=== PATIENT | female | born 1960 | race Hispanic/Latino ===

== ENCOUNTER 2016-05-22 14:37 | Emergency (ER) | payer SELFPAY ==
[2016-05-22] MEDS ORDERED: Nitroglycerin 0.4 MG TAB (25 Tab Bottle) ONE (15:12)
[2016-05-22 15:15] LABS: #Basophils 0.1 thou/uL (0.0-0.2); #Eosinphils 0.4 thou/uL (0.0-0.7); #Lymphocytes 2.4 thou/uL (1.20-3.40); #Monocytes 0.5 thou/uL (0.11-0.59); #Neutrophils 4.9 thou/uL (1.40-6.50); %Eosinophils 4.3 % (0.0-10.0); %Monocytes 5.6 % (0.0-10.0); Hematocrit 40.6 % (36.0-47.0); Mean Platelet Volume 7.3 fL (7.4-10.4); Red Blood Cell (RBC) Count 4.61 mill/uL (4.20-5.40); White Blood Cell (WBC) Count 8.2 thou/uL (4.8-10.8)
[2016-05-22 15:32] LABS: ALT (SGPT) 44 U/L (0-55); AST (SGOT) 36 U/L (5-34); Alkaline Phosphatase 117 U/L (40-150); Anion Gap 15 mmol/L (10-20); BUN (Urea Nitrogen) 21 mg/dL (9.8-20.1); Bilirubin, Total 0.4 mg/dL (0.2-1.2); CK (CPK) 134 U/L (29-168); Calc. Creatinine Clearance 0 mL/min (70-130); Calcium 8.9 mg/dL (7.8-10.44); Carbon Dioxide 23 mmol/L (22-29); Chloride 107 mmol/L (98-107); Estimated GFR-MDRD 63; Lipase 26 U/L (8-78)
[2016-05-22 15:33] LABS: Troponin I Less than 0.010 ng/mL (< 0.028)
--- NOTE | 2016-05-22 18:42 | RAD ---
CHEST 2 VIEWS: Date: 05/22/16 Comparison made with the 08/10/14 study. FINDINGS: There is a little bit of right perihilar streaking and perhaps a little bit on the left. The finding is nonspecific, but can be seen in viral illnesses and asthma. No lobar consolidation seen. No effu sions present. The heart is normal in size and the vessels show no congestion. IMPRESSION: Mild perihilar streaking, mainly on the right, significance unknown. At the very least, I would abner t the patient and get a follow-up chest x-ray. If not resolved, she may ultimately need a CT scan to check the right hilar region. POS: HOME
[2016-05-22 18:48] LABS: Troponin I Less than 0.010 ng/mL (< 0.028)
--- NOTE | 2016-05-22 19:35 | PICIS ---
[facility] EMERGENCY RECORD TRIAGE (SunMay 22, 2016 14:44 JSMI) PATIENT: NAME: Cally Oliver, AGE: 55, GENDER: female, : Sun1960, TIME OF GREET: SunMay 22, 2016 14:38, PREFERRED LANGUAGE: Romanian, ETHNICITY: or , ECODE BILLING MAP: [facility], SSN: [id number], Zip Code: [address], KG WEIGHT: 90.72, PHONE: [phone], , , PERSON ID: [id number], PAYMENT: SJX Self Pay, PCP: none. (SunMay 22, 2016 14:44 JSMI) COMPLAINT: left arm pain, shortness of breath, CP. (SunMay 22, 2016 14:44 JSMI) ADMISSION: URGENCY: 2 Emergent, ADMISSION SOURCE: Home, TRANSPORT: CAR, BED: TRIAGE. (SunMay 22, 2016 14:44 JSMI) ASSESSMENT: Assessment: PT PRESENTS AWAKE ALERT AND ORIENTED. SKIN PINK WARM AND DRY., Symptoms began 05/22/2016 1700. (14:47 JSMI) PAIN: Patient complains of pain described as, aching, Location midsternal and left arm., Pain is constant, Aggravating factors:, Aggravating factors include coughing. (14:47 JSMI) IMMUNIZATIONS: Flu vaccine not up to date, Tetanus not up to date. (14:47 JSMI) SIRS SCORING: Heart Rate 55-109 (0), Temp range 96.8-101.1 (0), respiratory rate 12-24 (0), Mental Status altered: no (0), Infection or Suspected Infection: No. (14:47 JSMI) PROVIDERS: TRIAGE NURSE: Gabrielle Toney RN. (SunMay 22, 2016 14:44 JSMI) VITAL SIGNS: BP 142/81, Pulse 79, Resp 16, Temp 98.1, (Oral), Pain 5, O2 Sat 96, on Room Air, Time 05/22/2016 14:45. (14:45 JSMI) PREVIOUS VISIT ALLERGIES: Penicillins, Sulfa (Sulfonamide Antibiotics). (SunMay 22, 2016 14:44 JSMI) Penicillins, Sulfa (Sulfonamide Antibiotics). (14:47 JSMI) KNOWN ALLERGIES Penicillins Sulfa (Sulfonamide Antibiotics): - Entered category: Sulfa (Sulfonamide Antibiotics) -- Entered category: Sulfa (Sulfonamide Antibiotics) CURRENT MEDICATIONS (14:44 JSMI) None VITAL SIGNS VITAL SIGNS: BP: 142/81, Pulse: 79, Resp: 16, Temp: 98.1 (Oral), Pain: 5, O2 sat: 96 on Room Air, Time: 05/22/2016 14:45. (14:45 JSMI) BP: 110/69, Pulse: 73, Resp: 16, Pain: 5, Time: 05/22/2016 16:00. (16:00 KMOR) BP: 132/73, Pulse: 73, Resp: 14, Pain: 4, O2 sat: 99 on Room Air, Time: 05/22/2016 16:23. (16:23 JSMI) BP: 130/72, Pulse: 74, Resp: 20, Pain: 4, O2 sat: 95 on Room Air, Time: 05/22/2016 17:21. (17:21 JSMI) BP: 113/58, Pulse: 66, Resp: 18, Pain: 2, O2 sat: 97 on Room Air, Time: &a-1R&a+25V*p+0X*v4000D*c202B*c15G*c2P*p-0X&a-25V&a+1R Name: Cally Oliver : 1960 F55 MedRec: [id number] AcctNum: [id number] Prepared: Chadwick May 23, 2016 09:28 by Interface Page 1 of 11 pMD [facility] EM[facility]GENCY RECORD 05/22/2016 18:26. (18:26 JSMI) BP: 116/57, Pulse: 68, Resp: 19, Temp: 98.2 (Oral), Pain: 2, O2 sat: 97 on Room Air, Time: 05/22/2016 19:15. (19:15 KSPL) NURSING ASSESSMENT: RESPIRATORY /CHEST (14:47 JSMI) CONSTITUTIONAL: Complex assessment performed, Patient arrives ambulatory, Gait steady, History obtained from patient, Patient appears comfortable, Patient cooperative, Patient alert, Oriented to person, place and time, Skin warm, Skin dry, Skin normal in color, Mucous membranes pink, Mucous membranes moist, Patient is well-groomed, Patient complains of CP, cough, left arm pain. PAIN: midsternal. RESPIRATORY/CHEST: Breath sounds clear, Respiratory assessment findings include respiratory effort easy, Respirations regular, Conversing normally, Associated with cough, non-productive. NURSING PROCEDURE: DISCHARGE NOTE (19:15 KSPL) DISCHARGE: Patient discharged to home, ambulating without assistance, family driving, accompanied by other family member, Summary of Care printed/ provided, Patient requested and was provided an electronic copy of Discharge Instructions, Transition record given to patient, Discharge instructions given to patient, Simple or moderate discharge teaching performed, by Gina STONE, Follow up care, overview of prescribed meds, taking meds as prescribed., Prescriptions given and instructions on side effects given, Name of prescription(s) given: Motrin, zithromax, tessslon perles, mucinex, Medication reconciliation form given, Above person(s) verbalized understanding of discharge instructions and follow-up care, Patient treated and evaluated by physician. BELONGINGS: Belongings and valuables with patient at time of discharge include:, Belongings remain with patient, Valuables remain with patient. SAFETY: Side rails up, Cart/Stretcher in lowest position, Call light within reach, Hospital ID band on, Patient in view of the nursing station, Notes: Daughter called and is on way to pick up worker pt from ER. NURSING PROCEDURE: EKG CHART (14:44 KMOR) PATIENT IDENTIFIER: Patient actively involved in identification process, Patient's identity verified by patient stating name, Patient's identity verified by patient stating date. EKG: EKG indicated for complaint of chest pain, 12 lead EKG performed on the left chest, done by CHASE Miller, first EKG. FOLLOW-UP: After procedure, EKG for interpretation given to Dr. Tay. NOTES: Patient tolerated procedure well. NURSING PROCEDURE: IV (15:12 KMOR) PATIENT IDENITIFIER: Patient actively involved in identification &a-1R&a+25V*p+0X*q9997D*c202B*c15G*c2P*p-0X&a-25V&a+1R Name: Cally Oliver : 1960 F55 MedRec: [id number] AcctNum: [id number] Prepared: SunMay 23, 2016 09:28 by Interface Page 2 of 11 [facility] EMERGENCY RECORD process, Patient's identity verified by patient stating name, Patient's identity verified by patient stating date. IV SITE 1: IV therapy indicated for hydration, IV therapy indicated for medication administration, IV established, to the right antecubital, using an 18 gauge catheter, in one attempt, Saline lock established, Flushed with normal saline (mls): 10CC, Labs drawn at time of placement, labeled in the presence of the patient and sent to lab. FOLLOW-UP SITE 1: After procedure, 2x3 ensure dressing applied. NOTES: Patient tolerated procedure well. NURSING PROCEDURE: NURSE NOTES NURSES NOTES: Notes: Patient resting back in bed, RR even and unlabored. Reports feels short of breath, Patient head of bed elevated for comfort. (16:17 KMOR) Notes: Dr. Tay in to discuss place of care with patient, Patient denies needs at this time. (17:40 KMOR) Notes: BLOOD COLLECTED FOR REPEAT TROPONIN. REPEAT EKG DONE. (18:26 JSMI) Shift change report given, to CHASE Vallecillo, Provided opportunity to answer questions, Line reconciliation completed. (19:05 JSMI) NURSING PROCEDURE: TRANSPORT TO TESTS (15:16 JSMI) TRANSPORT TO TESTS: Patient transported to x-ray, via cart, Accompanied by x-ray bioprocessing manufacturing technician. ORDER DETAILS Order Name: POKER IN ED, Status: Done, Time: 15:11 05/22/2016, User: BON, - Ordered for: DO Tay Matthew, - Entered by: DO Tay Matthew - SunMay 22, 2016 15:01, - Quantity: 1, Order Name: Cardiac Profile w/CKMB & Troponin - I, Status: Active, Time: 15:01 05/22/2016, User: CINDY, - Ordered for: DO Tay Matthew, - Entered by: DO Tay Matthew - SunMay 22, 2016 15:01, - Quantity: 1, Order Name: CBC with Differential, Status: Active, Time: 15:01 05/22/2016, User: MBRI, - Ordered for: DO Tay Matthew, - Entered by: DO Jasvir Rohith - SunMay 22, 2016 15:01, - Quantity: 1, Order Name: CK (CPK), Status: Active, Time: 15:01 05/22/2016, User: MBRI, - Ordered for: DO Tay Matthew, - Entered by: DO Jasvir Rohith - SunMay 22, 2016 15:01, - Quantity: 1, Order Name: Comprehensive Metabolic Panel, Status: Active, Time: 15:01 05/22/2016, User: MBRI, &a-1R&a+25V*p+0X*d3009M*c202B*c15G*c2P*p-0X&a-25V&a+1R Name: Cally Oliver : 1960 F55 MedRec: [id number] AcctNum: [id number] Prepared: SunMay 23, 2016 09:28 by Interface Page 3 of 11 [facility] EMERGENCY RECORD - Ordered for: DO Tay Matthew, - Entered by: DO Tay Matthew - SunMay 22, 2016 15:01, - Quantity: 1, Order Name: EKG 12 Lead in Emergency Room, Status: Active, Time: 18:14 05/22/2016, User: MBRI, - Ordered for: DO Tay Matthew, - Entered by: DO Jasvir Rohith - SunMay 22, 2016 18:14, - Quantity: 1, Order Name: EKG 12 Lead in Emergency Room, Status: Active, Time: 15:01 05/22/2016, User: MBRI, - Ordered for: DO Tay Matthew, - Entered by: DO Jasvir Rohith - SunMay 22, 2016 15:01, - Quantity: 1, Order Name: ERRT Pulse Oximeter ER, Status: Active, Time: 15:01 05/22/2016, User: MBRI, - Ordered for: Jasvir, DO Rohith, - Entered by: DO Jasvir Rohith - SunMay 22, 2016 15:01, - Quantity: 1, Order Name: Lipase, Status: Active, Time: 15:01 05/22/2016, User: CINDY, - Ordered for: DO Tay Matthew, - Entered by: DO Tay Matthew - Arti May 22, 2016 15:01, - Quantity: 1, Order Name: SALINE LOCK, Status: Done, Time: 15:11 05/22/2016, User: KMOR, - Ordered for: DO Tay Matthew, - Entered by: DO Tay Matthew - Arti May 22, 2016 15:01, - Quantity: 1, Order Name: Troponin - I, Status: Active, Time: 18:14 05/22/2016, User: CINDY, - Ordered for: DO Tay Matthew, - Entered by: DO Tay Matthew - Arti May 22, 2016 18:14, - Quantity: 1, Order Name: Urinalysis w/ Rflx Microscopic, Status: Active, Time: 15:01 05/22/2016, User: CINDY, - Ordered for: DO Tay Matthew, - Entered by: DO Tay Matthew - Arti May 22, 2016 15:01, - Quantity: 1, Order Name: XR Chest Pa & Lat STANDARD, Status: Active, Time: 15:01 05/22/2016, User: CINDY, - Ordered for: DO Tay Matthew, - Entered by: DO Tay Matthew - Mon May 22, 2016 15:01, - Quantity: 1. MEDICATION ADMINISTRATION SUMMARY Drug Name: nitroglycerin sublingual, Dose Ordered: 0.4 mg, Route: Sublingual, Status: Given, Time: 15:14 05/22/2016, Drug Name: aspirin oral, Dose Ordered: 324 mg, Route: Oral, Status: Given, Time: 15:14 05/22/2016, Detailed record available in Medication Service section. &a-1R&a+25V*p+0X*j2853I*c202B*c15G*c2P*p-0X&a-25V&a+1R Name: Cally Oliver : 1960 F55 MedRec: [id number] AcctNum: [id number] Prepared: SunMay 23, 2016 09:28 by Interface Page 4 of 11 pMD [facility] EMERGENCY RECORD MEDICATION SERVICE (15:14 [facility]) aspirin oral: Order: aspirin oral (aspirin) - Dose: 324 mg : Oral Ordered by: Rohith Tay DO Entered by: Rohith Tay DO SunMay 22, 2016 15:09 , Acknowledged by: Gabrielle Toney RN SunMay 22, 2016 15:11 Documented as given by: Gabrielle Toney RN SunMay 22, 2016 15:14 Patient, Medication, Dose, Route and Time verified prior to administration. Correct patient, time, route, dose and medication confirmed prior to administration, Patient advised of actions and side-effects prior to administration, Allergies confirmed and medications reviewed prior to administration, Patient in position of comfort, Side rails up, Cart in lowest position. nitroglycerin sublingual: Order: nitroglycerin sublingual (nitroglycerin) - Dose: 0.4 mg : Sublingual Ordered by: Rohith Tay DO Entered by: Rohith Tay DO SunMay 22, 2016 15:09 , Acknowledged by: Gabrielle Toney RN SunMay 22, 2016 15:11 Documented as given by: Gabrielle Toney RN SunMay 22, 2016 15:14 Patient, Medication, Dose, Route and Time verified prior to administration. Correct patient, time, route, dose and medication confirmed prior to administration, Patient advised of actions and side-effects prior to administration, Allergies confirmed and medications reviewed prior to administration, Patient in position of comfort, Side rails up, Cart in lowest position, CP 3/10 BP 132/73. HPI CHEST PAIN (SunMay 23, 2016 09:09 MBRI) CHIEF COMPLAINT: Patient presents for evaluation of chest pain, ongoing. HISTORIAN: History provided by patient. LOCATION: Symptoms are localized, Entire chest, No radiation of pain, Pain has not moved in location over time. QUALITY: Pain is dull in nature, described as aching. SEVERITY: Maximum severity of symptoms moderate, Currently symptoms are moderate. TIME COURSE: Gradual onset of symptoms, started yesterday and has been constant since that time., There has been no change in the patient's symptoms over time, are constant. ASSOCIATED WITH: Associated with chills, Associated with cough, No associated fever, No associated nausea, No associated palpitations, Associated with shortness of breath, No associated trauma, Associated with upper respiratory infection, No associated vomiting, cough started several days ago. &a-1R&a+25V*p+0X*i0280H*c202B*c15G*c2P*p-0X&a-25V&a+1R Name: Cally Oliver : 1960 F55 MedRec: [id number] AcctNum: [id number] Prepared: SunMay 23, 2016 09:28 by Interface Page 5 of 11 pMD [facility] EMERGENCY RECORD EXACERBATED BY: Patient's condition exacerbated by cough, Patient's condition exacerbated by palpation of chest. RELIEVED BY: Patient's condition relieved by nothing. RISK FACTORS: Coronary artery disease risk factors, include family history, include smoking, No thoracic aortic dissection risk factors, No pulmonary embolism risk factors. WELLS CRITERIA FOR PE: No clinical signs and symptoms of a DVT (0), Patient does not have, or is likely to not have, a primary diagnosis of PE (0), Patient's heart rate is less than 100 (0), Patient has no history of immobilization within 3 days, nor any surgical history within the past 4 weeks (0), Patient has not had an objectively diagnosed PE or DVT previously (0), Patient does not have hemoptysis (0), Patient has not had treatment for malignancy within the last 6 months, nor palliative (0). ROS (SunMay 23, 2016 09:07 MBRI) CONSTITUTIONAL: Historian reports chills, reports malaise. EYES: Historian denies eye pain, denies photophobia, denies vision changes. ENT: Historian denies dysphagia, denies dysphasia, denies dysphonia, denies rhinorrhea, Historian denies sore throat. CARDIOVASCULAR: Historian reports chest pain, radiation to, the back, Historian denies diaphoresis, denies dyspnea on exertion, denies edema, denies orthopnea, denies syncope, denies palpitations. RESPIRATORY: Historian reports cough, reports shortness of breath, reports sputum, denies stridor, denies wheezing. GI: Negative gastrointestinal review of systems, Historian denies abdominal pain, denies diarrhea, denies nausea, denies vomiting. GENITOURINARY FEMALE: Historian denies dysuria, denies frequency, denies hematuria, denies urinary retention. MUSCULOSKELETAL: Historian denies injury, Denies any musculoskeletal pain. SKIN: Negative skin review of systems, Historian denies skin changes. NEUROLOGIC: Negative neurologic review of systems, Historian denies focal weakness, denies sensory changes. HEMO/LYMPHATIC: Historian denies abnormal blood clotting, denies easy bruising. PAST MEDICAL HISTORY (14:47 JSMI) MEDICAL HISTORY: Past medical history includes pulmonary disease, asthma, Past medical history includes pulmonary disease, asthma. mild cva. FEMALE SURGICAL HISTORY: Surgical history of hysterectomy, Surgical history of tubal ligation. &a-1R&a+25V*p+0X*x2602W*c202B*c15G*c2P*p-0X&a-25V&a+1R Name: Cally Oliver : 1960 F55 MedRec: [id number] AcctNum: [id number] Prepared: SunMay 23, 2016 09:28 by Interface Page 6 of 11 pMD [facility] EMERGENCY RECORD PSYCHIATRIC HISTORY: No previous psychiatric history. SOCIAL HISTORY: Patient drinks socially, Patient denies drug use, Patient currently uses tobacco, smokes cigarettes, daily, Patient has smoked for 30 years, Patient smokes 1/2 packs per day. FAMILY HISTORY: Family history is non-contributory to this case. Family history is non-contributory to this case. PHYSICAL EXAM (SunMay 23, 2016 09:07 MBRI) CONSTITUTIONAL: Vital Signs Reviewed, Nursing notes reviewed. HEAD: Head exam included findings of head atraumatic, normocephalic. EYES: Eye exam included findings of eyelids normal to inspection, Pupils equally round and reactive to light, Extraocular muscles intact. ENT: Ear exam normal, tympanic membranes normal, Nose exam normal, Pharynx exam normal, not injected. NECK: Neck exam normal, Neck exam included findings of normal range of motion, Trachea midline. RESPIRATORY CHEST: Respiratory exam included findings of no respiratory distress, Breath sounds clear, No wheezing, No rales, No rhonchi. CARDIOVASCULAR: Cardiovascular exam included findings of heart rate regular rate and rhythm, Heart sounds normal, normal S1, normal S2, no murmurs, Carotids normal, Abdominal aorta normal, Femoral pulses normal. ABDOMEN FEMALE: Abdominal exam included findings of abdomen nontender, Bowel sounds normal, no distension, no mass, no pulsatile masses, no peritoneal signs, no rigidity, no guarding, no rebound. BACK: Back exam included findings of normal inspection, no tenderness. UPPER EXTREMITY: Upper extremity exam included findings of inspection normal, Range of motion normal, Motor strength normal, Radial pulse normal, no cyanosis, no clubbing, no edema. LOWER EXTREMITY: Lower extremity exam included findings of inspection normal, Range of motion normal, Motor strength normal, Pedal pulse normal, no cyanosis, no clubbing, no edema, Normal pop pulses wanda noted. NEURO: Neuro exam findings include patient oriented to person, place and time, Speech normal, Gait normal. SKIN: Skin exam included findings of skin warm, dry, and normal in color. PSYCHIATRIC: Psychiatric exam included findings of patient oriented to person place and time, Normal affect. LAB INTERPRETATION (18:23 MBRI) INTERPRETATION: I reviewed the lab results. EVENTS TRANSFER: Triage to Emergency Triage. (SunMay 22, 2016 14:44 &a-1R&a+25V*p+0X*m1123E*c202B*c15G*c2P*p-0X&a-25V&a+1R Name: Cally Oliver : 1960 F55 MedRec: [id number] AcctNum: [id number] Prepared: SunMay 23, 2016 09:28 by Interface Page 7 of 11 pMD [facility] EMERGENCY RECORD [facility]) Emergency Triage to Emergency Room -04. (15:05 KMOR) Removed from Emergency Emergency Room -04. (19:19 KSPL) RADIOLOGYINTERPRETATION (18:23 MBRI) CHEST: Chest films negative, no pneumothorax, no hemothorax, no cardiomegaly, no congestive heart failure, no effusion, wanda perihilar infiltrates suspected. VEST BASTER: Preliminary review of x-rays by, ED Physician. EKG INTERPRETATION 12 LEAD EKG INTERPRETATION: 12 lead EKG interpreted by Emergency Department Physician at time of study, 12 lead EKG shows normal sinus rhythm, Rate (beats per minute): 84, with no ectopics, Conduction normal, ST segments normal, T waves normal, Crozier normal. (15:35 MBRI) 12 lead EKG interpreted by Emergency Department Physician at time of study, 12 lead EKG shows normal sinus rhythm, Rate (beats per minute): 67, with no ectopics, Interpretation: normal EKG, Conduction normal, ST segments normal, T waves normal, Crozier normal, #2 No changes noted. (18:24 MBRI) O2SAT INTERPRETATION (15:01 MBRI) O2SAT: Oxygen saturation interpretation: Normal. DOCTOR NOTES (SunMay 23, 2016 09:08 MBRI) TEXT: Pt evaluated at this time and appears stable. No findings to suggest sig illness or issue requiring hospitalization or further intervention at this time. No indications for acute cardiopulmonary etiology ie TAD, TAA, ACS, AMI, PE, PTX, pneumonia, or upper GI etiology. Plan of care discussed with pt and questions answered. Pt was informed of reasons for follow-up and return and they stated understanding. Pt is stable for d/c home at this time. HEART SCORE: Patients history is Slightly Suspicious (0), Patients ECG is normal (0), Patients age is greater than 45 and less than 65 (1), Patient has 1 or 2 risk factors (1), Patients Troponin is equal to or less than 1 times the normal limit (0), Total 2. PROBLEM LIST No recorded problems DIAGNOSIS (19:03 MBRI) FINAL: PRIMARY: ACUTE BRONCHITIS UNSPECIFIED, ADDITIONAL: chest pain - non-cardiac. DISPOSITION PATIENT: Disposition Type: Discharge, Disposition: *Discharge Home, Condition: Fair. (19:03 MBRI) Patient left the department. (19:19 KSPL) &a-1R&a+25V*p+0X*m2218I*c202B*c15G*c2P*p-0X&a-25V&a+1R Name: Cally Oliver : 1960 F55 MedRec: [id number] AcctNum: [id number] Prepared: SunMay 23, 2016 09:28 by Interface Page 8 of 11 pMD [facility] EMERGENCY RECORD INSTRUCTION (19:04 MBRI) DISCHARGE: BRONCHITIS, ABX TX (ADULT), ATYPICAL CHEST PAIN UNKNOWN CAUSE. FOLLOWUP: [facility], /[facility], [address] [place] [address], [facility] [id number], , Follow up with Primary Care Physician in 7-10 days. SPECIAL: Please return for any further issues or concerns, we would be happy to see you. We hope you feel better soon. Follow-up with your PCP in a week for further assessment and care. Tylenol or Advil for Pain. PRESCRIPTION (19:03 MBRI) Motrin: TABLET : 600 mg : ORAL : Quantity: 1 Unit: tab(s) Route: ORAL Schedule: every 6 hours PRN Dispense: 60 May substitute. Refills: No Refills . NOTES: No refills. Mucinex DM: TABLET,EXTENDED RELEASE MULTIPHASE 12 HR : 1,200 mg-60 mg : ORAL : Quantity: 1 Unit: tab(s) Route: ORAL Schedule: every 12 hours Dispense: 20 May substitute. Refills: No Refills . NOTES: ^s=No refills No refills. Tessalon Perles: CAPSULE (HARD, SOFT, ETC.) : 100 mg : ORAL : Quantity: 1 Unit: cap(s) Route: ORAL Schedule: every 8 hours PRN Dispense: 21 May substitute. Refills: No Refills . NOTES: ^s=^s=No refills No refills No refills. Zithromax oral: TABLET : 250 mg : ORAL : Quantity: 1 Unit: tab(s) Route: ORAL Schedule: once a day Dispense: 6 May substitute. Refills: No Refills . NOTES: 2 tabs po on day 1 then 1 tab po daily for 4 days No refills. IMAGING *EKG: Image captured from scanner. (18:12 KMOR) *DISCHARGE INSTRUCTIONS RECEIPT: Image captured from scanner. (19:58 KSPL) Page 2 added. Image captured from scanner. (19:58 KSPL) *SUPPLY CHARGE SHEET: Image captured from scanner. (19:58 KSPL) *EKG 2: Image captured from scanner. (SunMay 23, 2016 08:06 KMOR) ADMIN DIGITAL SIGNATURE: CHASE Yeboah, Angela. (SunMay 23, 2016 07:17 KMOR) DO Tay Matthew. (SunMay 23, 2016 09:21 MBRI) &a-1R&a+25V*p+0X*g9710O*c202B*c15G*c2P*p-0X&a-25V&a+1R Name: Cally Oliver : 1960 F55 MedRec: [id number] AcctNum: [id number] Prepared: SunMay 23, 2016 09:28 by Interface Page 9 of 11 pMD [facility] EMERGENCY RECORD RESULTS LABORATORY: Cardiac Profile w/CKMB & TropI Collection DT: SunMay 22, 2016 15:12, CKMB 1.8 ng/mL, Range (0-6.6), Troponin I Less than 0.010 ng/mL, Range (< 0.028), Reference Range , 0.00 - 0.028 ng/mL Negative 0.029 - 0.29 ng/mL , Indeterminate Greater or Equal to 0.3 ng/mL Strongly suggests TX , . (15:36 MBRI) Lipase Collection DT: SunMay 22, 2016 15:12, Lipase 26 U/L, Range (8-78). (15:36 MBRI) CK (CPK) Collection DT: SunMay 22, 2016 15:12, CK (CPK) 134 U/L, Range (29-168). (15:36 MBRI) Comprehensive Metabolic Panel Collection DT: SunMay 22, 2016 15:12, Sodium 141 mmol/L, Range (136-145), Potassium 3.7 mmol/L, Range (3.5-5.1), Chloride 107 mmol/L, Range (98-107), Carbon Dioxide 23 mmol/L, Range (22-29), Anion Gap 15 mmol/L, Range (10-20), *BUN (Urea Nitrogen) 21 - H mg/dL, Range (9.8-20.1), Creatinine 0.93 mg/dL, Range (0.6-1.1), Estimated GFR-MDRD 63 , Reference Range for Estimated GFR: Greater than 90, mL/min/1.73 m2 NOTE: The MDRD equation has not been validated for use, with the elderly (over 70 years of age), women, patients with, serious comorbid condition or persons with extremes of body size, muscle, mass, or nutritional status. , Glucose 100 mg/dL, Range (70-105), Calcium 8.9 mg/dL, Range (7.8-10.44), Bilirubin, Total 0.4 mg/dL, Range (0.2-1.2), Protein, Total 7.0 g/dL, Range (6.0-8.3), NOTE: Plasma values are generally 0.3 to 0.5 g/dL higher than serum values, due to the presence of fibrinogen. , Albumin 4.0 g/dL, Range (3.5-5.0), Globulin 3.0 g/dL, Range (2.4-3.5), Alb/Glob Ratio 1.3 g/dL, Range (1.2-2.2), Alkaline Phosphatase 117 U/L, Range (40-150), *AST (SGOT) 36 - H U/L, Range (5-34), ALT (SGPT) 44 U/L, Range (0-55). (15:36 MBRI) CBC with Differential Collection DT: SunMay 22, 2016 15:12, White Blood Cell (WBC) Count 8.2 thou/uL, Range (4.8-10.8), Red Blood Cell (RBC) Count 4.61 mill/uL, Range (4.20-5.40), Hemoglobin 12.9 g/dL, Range (12.0-16.0), Hematocrit 40.6 %, Range (36.0-47.0), Mean Corpuscular Volume 88.1 fl, Range (81.0-99.0), &a-1R&a+25V*p+0X*a7915X*c202B*c15G*c2P*p-0X&a-25V&a+1R Name: Cally Oliver : 1960 F55 MedRec: [id number] AcctNum: [id number] Prepared: SunMay 23, 2016 09:28 by Interface Page 10 of 11 pMD [facility] EMERGENCY RECORD Mean Corpuscular Hemoglobin 28.0 pg, Range (27.0-31.0), *Mean Corpuscular HGB CONC 31.8 - L g/dL, Range (32.0-36.0), RBC Distribution Width 12.2 %, Range (11.5-14.5), Platelet Count 249 thou/uL, Range (130-400), *Mean Platelet Volume 7.3 - L fL, Range (7.4-10.4), %Neutrophils 59.5 %, Range (42.0-75.0), %Lymphocytes 29.5 %, Range (21.0-51.0), %Monocytes 5.6 %, Range (0.0-10.0), %Eosinophils 4.3 %, Range (0.0-10.0), %Basophils 1.0 %, Range (0.0-1.0), #Neutrophils 4.9 thou/uL, Range (1.40-6.50), #Lymphocytes 2.4 thou/uL, Range (1.20-3.40), #Monocytes 0.5 thou/uL, Range (0.11-0.59), #Eosinphils 0.4 thou/uL, Range (0.0-0.7), #Basophils 0.1 thou/uL, Range (0.0-0.2). (15:36 [facility]RI) Troponin - I Collection DT: SunMay 22, 2016 18:39, Troponin I Less than 0.010 ng/mL, Range (< 0.028), Reference Range , 0.00 - 0.028 ng/mL Negative 0.029 - 0.29 ng/mL , Indeterminate Greater or Equal to 0.3 ng/mL Strongly suggests [place] , . (19:01 [facility]RI) Murillo: JOAN=CHASE Toney, Gabrielle MCCONNELLOR=CHASE Yeboah, Angela KSPL=CHASE Rodriguez, Gina MBRI=DO Tay Matthew &tessa-1R&a+25V*p+0X*[id number]*c202B*c15G*c2P*p-0X&a-25V&a+1R Name: Cally Oliver : 1960 F55 MedRec: [id number] AcctNum: [id number] Prepared: SunMay 23, 2016 09:28 by Interface Page 11 of 11 pMD [facility] MEDICATION RECONCILIATION You were seen in the Emergency Department on: SunMay 22, 2016 KNOWN ALLERGIES Penicillins Sulfa (Sulfonamide Antibiotics): - Entered category: Sulfa (Sulfonamide Antibiotics) -- Entered category: Sulfa (Sulfonamide Antibiotics) MEDICATIONS GIVEN WHILE IN THE EMERGENCY DEPARTMENT nitroglycerin sublingual (nitroglycerin) - Dose: 0.4 milligram(s) : Sublingual aspirin oral (aspirin) - Dose: 324 milligram(s) : Oral HOME MEDICATIONS None Notes from the emergency department Reviewed with patient PRESCRIPTIONS (4) Printed (4) Motrin : TABLET : 600 mg : ORAL Quantity: 1, Unit: tab(s), Route: ORAL, Schedule: every 6 hours PRN, Dispense: 60 Mucinex DM : TABLET,EXTENDED RELEASE MULTIPHASE 12 HR : 1,200 mg-60 mg : ORAL Quantity: 1, Unit: tab(s), Route: ORAL, Schedule: every 12 hours, Dispense: 20 Tessalon Perles : CAPSULE (HARD, SOFT, ETC.) : 100 mg : ORAL Quantity: 1, Unit: cap(s), Route: ORAL, Schedule: every 8 hours PRN, Dispense: 21 &a-1R&a+25V*p+0X*[id number]*c202B*c15G*c2P*p-0X&a-25V&a+1R Name: Cally Oliver : 1960 F55 MedRec: [id number] AcctNum: [id number] Prepared: SunMay 23, 2016 09:28 by Interface pMD [facility]ENTER[facility]ama[facility]
== END 2016-05-22 19:15 | disposition home or self-care (01) ==
LOC: BURERS 14:37
DX: J20.9 Acute bronchitis, unspecified (principal); J45.909 Unspecified asthma, uncomplicated; F17.210 Nicotine dependence, cigarettes, uncomplicated; Z98.51 Tubal ligation status; Z86.73 Personal history of transient ischemic attack (TIA), and cerebral infarction without residual deficits
CPT/HCPCS: 71020; 80053; 82550; 82553; 83690; 84484; 85025; 93005; 94760

== ENCOUNTER 2016-06-02 10:59 | Emergency (ER) | payer OTHER, SELFPAY ==
[2016-06-02] MEDS ORDERED: Ondansetron HCl/PF 4 MG/2 ML Vial ONE (11:16)
[2016-06-02] MEDS ORDERED: Ketorolac Tromethamine 30 MG/ML VIAL ONE (11:16)
[2016-06-02 11:38] LABS: Lactic Acid - Sepsis 1.4 mmol/L (0.5-2.2)
[2016-06-02 11:43] LABS: ALT (SGPT) 563 U/L (0-55); AST (SGOT) 377 U/L (5-34); Alkaline Phosphatase 531 U/L (40-150); Anion Gap 15 mmol/L (10-20); BUN (Urea Nitrogen) 13 mg/dL (9.8-20.1); Bilirubin, Total 5.7 mg/dL (0.2-1.2); Calc. Creatinine Clearance 0 mL/min (70-130); Calcium 9.8 mg/dL (7.8-10.44); Carbon Dioxide 24 mmol/L (22-29); Chloride 102 mmol/L (98-107); Estimated GFR-MDRD 69; Globulin 3.7 g/dL (2.4-3.5)
[2016-06-02 11:50] LABS: #Lymphocytes 0.4 thou/uL (1.20-3.40); #Monocytes 0.2 thou/uL (0.11-0.59); #Neutrophils 10.2 thou/uL (1.40-6.50); %Basophils 0.4 % (0.0-1.0); %Eosinophils 0.2 % (0.0-10.0); %Monocytes 1.7 % (0.0-10.0); Mean Platelet Volume 8.1 fL (7.4-10.4); Red Blood Cell (RBC) Count 5.05 mill/uL (4.20-5.40); White Blood Cell (WBC) Count 10.9 thou/uL (4.8-10.8)
[2016-06-02 11:59] LABS: Troponin I Less than 0.010 ng/mL (< 0.028)
[2016-06-02] MEDS ORDERED: Fentanyl 100 MCG/2 ML VIAL ONE (12:02)
[2016-06-02] MEDS ORDERED: metroNIDAZOLE 500 MG/100 ML BAG ONE (12:02)
--- NOTE | 2016-06-02 20:12 | RAD ---
PORTABLE CHEST 06/02/16 An AP portable film at 1114 shows a normal sized heart and clear lungs. There is no sign of pneumoni a or pleural effusion. Comparison with the prior study of 05/22 shows no adverse change in the interva l. IMPRESSION: No acute thoracic finding. POS: HOME
--- NOTE | 2016-06-02 21:09 | ULT ---
RIGHT UPPER QUADRANT ULTRASOUND 06/02/16 Ultrasonography of the right upper quadrant was performed for evaluation of pain. Documentary images and worksheets were provided and reviewed. The patient's abdomen is rather gassy which obscures some areas. The gallbladder is contracted and a ppears to have some gallstones within it. The wall is slightly thick and there may be even a little bit of fluid around the gallbladder. Additionally, the common bile duct is dilated measuring about 1 .2 cm in diameter. Some of the images suggest gallstones are present in the common bile duct. The liver is enlarged measuring just over 23 cm in oblique sagittal dimension. While it is not seen optimally, no masses were appreciated. Any dilation of intrahepatic duct is relatively minor. The pancreas was largely obscured by gas. The visible sections appear normal. The right kidney appea red normal and measured 11.7 cm in length. IMPRESSION: 1. Findings suggestive of acute cholecystitis with stones in the common bile duct causing obstr uction. 2. Hepatomegaly. Findings discussed with Dr. Lake at 1259 on 06/02/16. POS: HOME
== END 2016-06-02 13:14 | disposition home or self-care (01) ==
LOC: BURERS 10:59
DX: K80.63 Calculus of gallbladder and bile duct with acute cholecystitis with obstruction (principal); J45.909 Unspecified asthma, uncomplicated; Z86.73 Personal history of transient ischemic attack (TIA), and cerebral infarction without residual deficits; F17.210 Nicotine dependence, cigarettes, uncomplicated
CPT/HCPCS: 36415; 71010; 76705; 80053; 82553; 83605; 84484; 85025; 87040; 93005; 94760; 96361; 96365; 96375; J1170; J1885; J1956; J2405; J3010

== ENCOUNTER 2016-07-19 00:14 | Emergency (ER) | payer OTHER, SELFPAY ==
[2016-07-19] MEDS ORDERED: Ketorolac Tromethamine 30 MG/ML VIAL ONE (00:46)
[2016-07-19] MEDS ORDERED: Prochlorperazine 10 MG/2 ML VIAL ONE (00:46)
== END 2016-07-19 01:10 | disposition left against medical advice (07) ==
LOC: BURERS 00:14
DX: R11.2 Nausea with vomiting, unspecified (principal); J45.909 Unspecified asthma, uncomplicated; F17.210 Nicotine dependence, cigarettes, uncomplicated
CPT/HCPCS: 93005; J0780; J1885

== ENCOUNTER 2020-10-19 12:48 | Emergency (ER) | payer OTHER, SELFPAY ==
[~2020-10-19 12:48] MED LIST: Iopamidol 370 76% 100 ML VIAL ONE
[2020-10-19 13:20] LABS: #Basophils 0.1 thou/uL (0.0-0.2); #Eosinphils 0.2 thou/uL (0.0-0.7); #Lymphocytes 1.5 thou/uL (1.20-3.40); #Monocytes 0.4 thou/uL (0.11-0.59); #Neutrophils 4.1 thou/uL (1.40-6.50); %Basophils 0.9 % (0.0-1.0); %Eosinophils 3.6 % (0.0-10.0); %Lymphocytes 23.9 % (21.0-51.0); %Monocytes 5.6 % (0.0-10.0); %Neutrophils 65.9 % (42.0-75.0); Hemoglobin 12.4 g/dL (12.0-16.0); Mean Corpuscular HGB CONC 31.2 g/dL (32.0-36.0); Mean Corpuscular Hemoglobin 28.8 pg (27.0-31.0); Mean Corpuscular Volume 92.2 fL (78.0-98.0); Mean Platelet Volume 8.2 fL (7.4-10.4); Platelet Count 222 thou/uL (130-400); RBC Distribution Width 13.5 % (11.5-14.5); White Blood Cell (WBC) Count 6.2 thou/uL (4.8-10.8)
[2020-10-19] MEDS ORDERED: Morphine 4 MG/ML VIAL ONE (13:20)
[2020-10-19] MEDS ORDERED: Ondansetron PF 4 MG/2 ML Vial ONE (13:20)
[2020-10-19 13:38] LABS: ALT (SGPT) 28 U/L (8-55); AST (SGOT) 27 U/L (5-34); Albumin 3.8 g/dL (3.5-5.0); Alkaline Phosphatase 106 U/L (40-110); Anion Gap 14 mmol/L (10-20); BUN (Urea Nitrogen) 18 mg/dL (9.8-20.1); Bilirubin, Total 0.3 mg/dL (0.2-1.2); Calc. Creatinine Clearance 0 mL/min (70-130); Calcium 8.7 mg/dL (7.8-10.44); Carbon Dioxide 23 mmol/L (22-29); Chloride 109 mmol/L (98-107); Globulin 2.7 g/dL (2.4-3.5); Glucose 113 mg/dL (70-105); Lipase 22 U/L (8-78); Potassium 3.8 mmol/L (3.5-5.1); Protein, Total 6.5 g/dL (6.0-8.3); Sodium 142 mmol/L (136-145)
[2020-10-19] MEDS ORDERED: Fentanyl 100 MCG/2 ML VIAL ONE ×2 (13:55→15:47)
[2020-10-19] MEDS ORDERED: Nitroglycerin 50 MG/250 ML BOT 250 ML ONE (14:07)
[2020-10-19] MEDS ORDERED: Acetaminophen 500 MG TAB ONE (14:08)
== END 2020-10-19 14:00 | disposition short-term general hospital (02) ==
LOC: BURERS 12:48
DX: I20.0 Unstable angina (principal); J45.909 Unspecified asthma, uncomplicated; F17.210 Nicotine dependence, cigarettes, uncomplicated
CPT/HCPCS: 36415; 71275; 74174; 80053; 83690; 83880; 84484; 85025; 93005; 96374; 96375; 96376; J2270; J2405; J3010; Q9967